=== PATIENT | male | born 1950 | race Caucasian/White ===

== ENCOUNTER 2016-11-30 07:00 | Day surgery (SDC) | payer MEDICARE, OTHER ==
[~2016-11-30] VITALS: Ht 182.9 cm; Wt 97.5 kg
[~2016-11-30 07:00] MED LIST: 0.9% Sodium Chloride 1,000 ML IV SCH; CHOL400T41 PO; COU5 PO; DILT360T7 PO; INUL197. PO; OMEG-5 PO; ROB500 PO; SILD100T PO; Sodium Chloride LOK Flush 10 mL Syringe IV PRN; TIZA2TAB3 PO; TOPR25T PO; TRAM-69 PO; TUMS PO; WARF7.5T2 PO; ZES20T PO; [UNRECOGNIZED DRUG - CODE] PO; fentaNYL-PF 50 mCg/mL 2 mL Inj IVPUSH PRN
[2016-11-30 07:25] VITALS: BP_SYST 140; BP_SYST 145; BP_DIAS 100; BP_DIAS 99; PULSE 97; RESP 16; O2SAT 97
[2016-11-30] MEDS ORDERED: 0.9% Sodium Chloride 1,000 ML IV ONE (07:45)
[2016-11-30 08:23] VITALS: BP 111/74; PULSE 83; RESP 12; O2SAT 95
--- NOTE | 2016-11-30 08:32 | ENDO ---
[address] [address] ENDOSCOPY PROCEDURE PATIENT: LEE LUIS : 1950 MR#: [id number] ADMIT: 11/30/2016 JOB ID: [id number] DATE: 11/30/2016 PRIMARY PROVIDER: Claude Singh M.D. PROCEDURE: Colonoscopy. INDICATIONS: A 66-year-old male with a personal history of colon polyps returning for surveillance. EQUIPMENT: PCF H 180 AL. SEDATION: 1. 5 mg Versed. 2. 100 mcg fentanyl. COMPLICATIONS: None identified. BOWEL PREPARATION: Fair. PROCEDURAL INFORMATION: After the risks and benefits were explained, written and verbal informed consent was obtained. The patient was brought into the endoscopy suite and placed into the left lateral decubitus position. Sedation was achieved as above. A digital rectal examination was accomplished. Grade 3 and grade 4 nonbleeding nonthrombosed hemorrhoids were identified. The scope was introduced into the rectum and advanced under direct visualization to the level of the cecum, as identified by the appendiceal orifice and ileocecal valve. The scope was slowly withdrawn to carefully examine the mucosa for any defects or lesions. Retroflexed views were accomplished in the rectum. The colon was decompressed. The scope removed the patient who tolerated the procedure well. FINDINGS: No significant polyps, mass lesions or inflammatory features identified throughout. The patient had rather extensive diverticulosis through the left colon. Retroflexed views confirmed the presence of large engorged hemorrhoidal cushions. ENDOSCOPIC DIAGNOSIS: 1. Diverticulosis. 2. Hemorrhoids. RECOMMENDATIONS: 1. Repeat colonoscopy in five years' time. 2. Intermittent warm Eps[place] salt baths would likely be quite therapeutic for the hemorrhoidal engorgement.
[2016-11-30 08:33] VITALS: BP 102/74; PULSE 82; RESP 16; O2SAT 95
[2016-11-30 08:42] VITALS: BP 98/74; PULSE 84; RESP 16; O2SAT 95
== END 2016-11-30 23:59 | disposition home or self-care (01) ==
LOC: END 07:00
PROVIDERS: ATTEND Internal Medicine Gastroenterology
DX: Z12.11 Encounter for screening for malignant neoplasm of colon (principal); K57.30 Diverticulosis of large intestine without perforation or abscess without bleeding; K64.2 Third degree hemorrhoids; K64.3 Fourth degree hemorrhoids; Z86.010 Personal history of colon polyps; I10 Essential (primary) hypertension; G47.33 Obstructive sleep apnea (adult) (pediatric); R73.03 Prediabetes; E78.5 Hyperlipidemia, unspecified; I48.0 Paroxysmal atrial fibrillation; G25.81 Restless legs syndrome; Z79.01 Long term (current) use of anticoagulants
CPT/HCPCS: G0105; G0500; J2250; J3010; J7030